=== PATIENT | female | born 1960 | race Caucasian/White ===

== ENCOUNTER 2019-10-07 12:06 | Emergency (ER) | payer OTHER ==
--- NOTE | 2019-10-07 12:15 | ED Physician Documentation ---
PD HPI LOWER EXT INJURY - Stated complaint Stated Complaint: FALL-LT LEG PX - History obtained from History obtained from: Patient - History of Present Illness PD HPI LOW EXT INJURY LOCATION: Left, Hip, Knee Type of injury: Fall (She tripped on an electric cord and fell forward onto her left knee with bruising and there that has continued as well as some pain in the hip with walking. She is concerned the bruising around the knee is now extended to the lower leg) Where injury occurred: Home Timing - onset: How many days ago (4) Timing - duration: Days (4) Timing - details: Abrupt onset, Still present, Waxing and waning (hurts for walking and extending knee) Worsened by: Palpating Associated symptoms: Swelling, Discolored (bruising medial anterior left knee, with bruising extending downward to anterior lower leg each day more.). No: Weakness, Numbness Similar symptoms before: Has not had sx before Review of Systems Skin: denies: Abrasion (s), Laceration (s) Musculoskeletal: reports: Other (muscle cramps the past few nights. No change in meds.) Neurologic: denies: Focal weakness, Numbness PD PAST MEDICAL HISTORY - Past Medical History Cardiovascular: None Respiratory: None Neuro: None Endocrine/Autoimmune: None - Present Medications Home Medications: Ambulatory Orders Medication Instructions Recorded Confirmed HYDROmorphone [Dilaudid] 2 mg PO TID PRN #12 tablet 10/07/19 Magnesium Oxide [Mag Ox] 400 mg PO DAILY #15 tablet 10/07/19 Tizanidine HCl 4 mg PO TID PRN #15 capsule 10/07/19 - Allergies Allergies/Adverse Reactions: Allergies Allergy/AdvReac Type Severity Reaction Status Date / Time amoxicillin Allergy Rash Verified 10/07/19 12:19 Sulfa (Sulfonamide Allergy Anaphylaxis Verified 10/07/19 12:18 Antibiotics) acetaminophen [From Vicodin] AdvReac Nausea Verified 10/07/19 12:19 codeine AdvReac Headache Verified 10/07/19 12:19 hydrocodone [From Vicodin] AdvReac Nausea Verified 10/07/19 12:19 lorazepam AdvReac Hallucinati Verified 10/07/19 12:19 ons Opioids - Morphine Analogues AdvReac Headache Verified 10/07/19 12:19 PD ED PE NORMAL - Vitals Vital signs reviewed: Yes - General General: Alert and oriented X 3, Well developed/nourished - Neck Neck: Supple, no meningeal sign, No adenopathy - Cardiac Cardiac: RRR, No murmur - Respiratory Respiratory: Clear bilaterally - Abdomen Abdomen: Soft, Non tender - Derm Derm: Normal color, Warm and dry - Extremities Extremities: No deformity (There is swelling from the hematoma. There is some mild laxity with pain on anterior drawer testing. Valgus testing is without any laxity.), No calf tenderness / cord, Other (Left hip is slightly tender at the lateral aspect. Impaction and rotational movement passively without any pain. Left knee shows hematoma purple bruising and swelling along the anteromedial aspect. Lower leg as purple to green bruising anteriorly. No calf tenderness) - Neuro Neuro: No motor deficit, No sensory deficit Results - Vitals Vitals: Vital Signs - 24 hr 10/07/19 12:16 Temperature 36.3 C L Heart Rate 62 Respiratory 18 Rate Blood Pressure 162/119 H O2 Saturation 100 Oxygen O2 Source Room air - Rads (name of study) left knee Radiology: Prelim report reviewed, See rad report (no fractures; moderate effusion) left hip Radiology: Prelim report reviewed (no fractures), See rad report PD MEDICAL DECISION MAKING - ED course Complexity details: reviewed results, considered differential (Hematoma with gravity extension to the anterior leg. Clinically no signs of DVT in the calf area. Can get an x-ray to evaluate for fracture. Can check electrolytes regarding muscle cramps), d/w patient Departure - Departure Clinical Impression: Muscle cramps Fall from slip, trip, or stumble Qualifiers: Encounter type: initial encounter Qualified Code(s): W01.0XXA - Fall on same level from slipping, tripping and stumbling without subsequent striking against object, initial encounter Contusion, knee Qualifiers: Encounter type: initial encounter Laterality: left Qualified Code(s): S80.02XA - Contusion of left knee, initial encounter Derangement, knee internal Qualifiers: Laterality: left Qualified Code(s): M23.92 - Unspecified internal derangement of left knee Condition: Stable Record reviewed to determine appropriate education?: Yes Instructions: ED Hematoma, ED Muscle Pain Leg Cramps Prescriptions: HYDROmorphone [Dilaudid] 2 mg PO TID PRN #12 tablet PRN Reason: Pain Magnesium Oxide [Mag Ox] 400 mg PO DAILY #15 tablet Tizanidine HCl 4 mg PO TID PRN #15 capsule PRN Reason: Spasms Comments: Continue usual medications. Use the knee brace when up and around to help support the knee. There is the bruising of the knee and the swelling and coloring in the lower leg is just a gravity effect from that. However there may be some ligament injury of the knee as well on exam with concern for the cartilage or the cruciate ligament. No fractures are seen on x-ray of your knee or hip. Use the knee brace when up and around and crutches for partial weightbearing. Pain medicine as needed. Your electrolytes are in the normal range. Continue your usual medicines. Your magnesium level is in the lower end of normal however and a magnesium supplement may help with some of the cramping you are having. Follow-up with your orthopedist or family doctor if not improved well within the next week or so for reevaluation.
[2019-10-07] MEDS ORDERED: oxyCODONE 5 MG TABLET PO STA (12:32)
[2019-10-07] MEDS: HYDROmorphone 2 MG/ML VIAL IM STA ×2 (12:44→13:05)
--- NOTE | 2019-10-07 13:21 | XRAY Report ---
PROCEDURE: Hip w/Pelvis 2-3V LT INDICATIONS: fall to left knee few days ago; knee/hip pain TECHNIQUE: AP pelvis with lateral view(s) of the left hip(s). COMPARISON: X-ray knee 10/07/2019 FINDINGS: Bones: No fractures or dislocations. Pelvic ring appears intact. No suspicious bony lesions. Mild degenerative changes are noted within the hips and lower lumbar spine. Soft tissues: The visualized bowel gas pattern is normal. No suspicious soft tissue calcifications. IMPRESSION: Degenerative changes are noted. No visualized acute fracture or dislocation. However, oc cult injury cannot be excluded. Recommend short interval imaging follow-up in 7-10 days as clinically indicated for additional evaluation. Reviewed by: Priscilal Montano MD on 10/07/2019 1:19 PM PDT Approved by: Priscilla Montano MD on 10/07/2019 1:19 PM PDT Station ID: [id number]
--- NOTE | 2019-10-07 13:21 | XRAY Report ---
PROCEDURE: Knee 3 View LT INDICATIONS: fall to left knee few days ago; knee/hip pain TECHNIQUE: 3 views of the left knee(s) were acquired. COMPARISON: X-ray hip 10/07/2019 FINDINGS: Bones: No fractures or dislocations. No suspicious bony lesions. Soft tissues: Moderate joint effusion. No suspicious soft tissue calcifications. IMPRESSION: Moderate effusion. No visualized acute fracture or dislocation. However, occult injury c annot be excluded. Recommend short interval imaging follow-up in 7-10 days as clinically indicated fo r additional evaluation. Reviewed by: Priscilla Montano MD on 10/07/2019 1:20 PM PDT Approved by: Priscilla Montano MD on 10/07/2019 1:20 PM PDT Station ID: [id number]
[2019-10-07 14:37] LABS: ALBUMIN 4.5 g/dL (3.2-5.5); ALBUMIN/GLOBULIN RATIO 1.1 (1.0-2.2); BILIRUBIN,TOTAL 0.8 mg/dL (0.2-1.0); CALCIUM 9.7 mg/dL (8.5-10.3); CREATININE 0.7 mg/dL (0.4-1.0); MAGNESIUM 1.9 mg/dL (1.7-2.8); TOTAL PROTEIN 8.7 g/dL (6.7-8.2)
[2019-10-07 14:51] VITALS: BP 145/79
== END 2019-10-07 14:52 | disposition home or self-care (01) ==
LOC: ED 12:06
DX: S80.02XA Contusion of left knee, initial encounter (principal); M25.552 Pain in left hip; W01.0XXA Fall on same level from slipping, tripping and stumbling without subsequent striking against object, initial encounter; Y92.009 Unspecified place in unspecified non-institutional (private) residence as the place of occurrence of the external cause; R25.2 Cramp and spasm
CPT/HCPCS: 36415; 73502; 73562; 80053; 83690; 83735; 96372; 99283; 99284; J1170

== ENCOUNTER 2022-09-29 10:51 | Outpatient (CLI) | payer MEDICARE ==
[2022-09-29 14:37] LABS: BASOPHILS # (AUTO) 0.1 10^3/uL (0.0-0.1); BASOPHILS % (AUTO) 1.1 %; EOSINOPHILS # (AUTO) 0.4 10^3/uL (0.0-0.7); EOSINOPHILS % (AUTO) 4.3 %; HCT - HEMATOCRIT 45.5 % (37.0-47.0); HGB - HEMOGLOBIN 14.6 g/dL (12.0-16.0); LYMPHOCYTES # (AUTO) 2.5 10^3/uL (1.5-3.5); LYMPHOCYTES % (AUTO) 30.4 %; MEAN CORPUSCULAR HEMOGLOBIN 27.5 pg (27.0-31.0); MEAN CORPUSCULAR HGB CONC 32.1 g/dL (32.0-36.0); MEAN CORPUSCULAR VOLUME 85.7 fL (81.0-99.0); MEAN PLATELET VOLUME 10.7 fL (7.9-10.8); MONOCYTES # (AUTO) 0.5 10^3/uL (0.0-1.0); MONOCYTES % (AUTO) 6.1 %; NEUTROPHILS # (AUTO) 4.7 10^3/uL (1.5-6.6); NEUTROPHILS % (AUTO) 57.9 %; PLT - PLATELET COUNT 228 10^3/uL (130-450); RED BLOOD COUNT 5.31 10^6/uL (4.20-5.40); RED CELL DISTRIBUTION WIDTH 15.1 % (12.0-15.0); WHITE BLOOD COUNT 8.1 x10^3/uL (4.8-10.8)
[2022-09-29 14:58] LABS: % IRON SATURATION 15 % (20-50); ALBUMIN 4.1 g/dL (3.2-5.5); ALBUMIN/GLOBULIN RATIO 1.1 (1.0-2.2); ALKALINE PHOSPHATASE 80 IU/L (42-121); ALT ALANINE AMINOTRANSFERASE 23 IU/L (10-60); AST ASPARTATE AMINOTRANSFERASE 36 IU/L (10-42); BILIRUBIN,TOTAL 0.8 mg/dL (0.2-1.0); BUN - BLOOD UREA NITROGEN 17 mg/dL (6-20); CALCIUM 9.8 mg/dL (8.5-10.3); CARBON DIOXIDE - CO2 31 mmol/L (21-32); CHLORIDE 101 mmol/L (101-111); CHOL/HDL RATIO 2.4 (<4.4); CHOLESTEROL 105 mg/dL; CREATININE 0.7 mg/dL (0.4-1.0); GFR - MDRD 85 (>89); GLUCOSE 103 mg/dL (70-100); HDL CHOLESTEROL 43 mg/dL; IRON 67 ug/dL (28-170); LDL CHOLESTEROL,CALCULATED 36 mg/dL; LDL/HDL RATIO 0.8 (<4.4); MICROALBUM/CREATININE RATIO,UR 9.5 ug/mg (<30.0); MICROALBUMIN,URINE 0.2 mg/dL (0-300.0); SODIUM 141 mmol/L (135-145); TOTAL IRON BINDING CAPACITY 435 ug/dL (250-450); TOTAL PROTEIN 7.9 g/dL (6.7-8.2); TRANSFERRIN 311 mg/dL (192-382); TRIGLYCERIDES 132 mg/dL; VLDL CHOLESTEROL 26 mg/dL
--- NOTE | 2022-09-29 17:29 | XRAY Report ---
PROCEDURE: Knee 3 View LT INDICATIONS: ARTHRITIS TECHNIQUE: 3 views of the left knee(s) were acquired. COMPARISON: None. FINDINGS: Bones: No fractures or dislocations. No suspicious bony lesions. Mild patellofemoral joint space na rrowing with small marginal osteophyte Soft tissues: Small knee joint effusion. No suspicious soft tissue calcifications or masses. IMPRESSION: Patellofemoral osteoarthritis and small joint effusion Reviewed by: Simón Cordova MD on 09/29/2022 4:28 PM THAIS Approved by: Simón Cordova MD on 09/29/2022 4:28 PM AKANGELO Station ID: [id number]
[2022-09-29 21:03] LABS: ESTIMATED AVERAGE GLUCOSE 126 mg/dL (70-100)
== END 2022-09-29 10:52 | disposition home or self-care (01) ==
LOC: DI.S 10:51
PROVIDERS: ATTEND Internal Medicine
DX: M17.12 Unilateral primary osteoarthritis, left knee (principal); M25.462 Effusion, left knee; R60.0 Localized edema; Z86.73 Personal history of transient ischemic attack (TIA), and cerebral infarction without residual deficits; E11.65 Type 2 diabetes mellitus with hyperglycemia; G47.39 Other sleep apnea
CPT/HCPCS: 36415; 80053; 80061; 82043; 82570; 82728; 83036; 83540; 83721; 84466; 85025

== ENCOUNTER 2022-10-15 12:07 | Outpatient (CLI) | payer MEDICARE ==
--- NOTE | 2022-10-15 13:39 | XRAY Report ---
PROCEDURE: Knee 4 View RT INDICATIONS: ARTHRITIS RT KNEE TECHNIQUE: 5 views of the right knee(s) were acquired. COMPARISON: None. FINDINGS: Bones: Status post right total knee arthroplasty. The hardware appears intact and in expected positi on. There is thinning of the anterior tibial cortex. No fractures or dislocations. No suspicious bon y lesions. Soft tissues: No knee joint effusion. No suspicious soft tissue calcifications or masses. IMPRESSION: Right total knee arthroplasty appears intact and in expected position. There is thinning and partial breakthrough of the mid to upper anterior tibial cortex, may be from prior hardware placement. Recomm end correlation with prior imaging. If clinically indicated, cross-sectional imaging can be obtained for further evaluation. Reviewed by: Miki Cordero MD on 10/15/2022 1:37 PM PDT Approved by: Miki Cordero MD on 10/15/2022 1:37 PM PDT Station ID: [id number]
== END 2022-10-15 12:08 | disposition home or self-care (01) ==
LOC: DI.S 12:07
PROVIDERS: ATTEND Internal Medicine
DX: M17.11 Unilateral primary osteoarthritis, right knee (principal); T84.032D Mechanical loosening of internal right knee prosthetic joint, subsequent encounter

== ENCOUNTER 2022-11-24 09:03 | Outpatient (CLI) | payer MEDICARE ==
--- NOTE | 2022-11-25 12:37 | Mammography Report ---
BILATERAL DIGITAL SCREENING MAMMOGRAM 3D/2D: 11/24/2022 CLINICAL: Routine screening. No prior exams were available for comparison. Both breasts are almost entirely fatty (category a/<25% glandular tissue). No significant masses, calcifications, or other findings are seen in either breast. IMPRESSION: NEGATIVE There is no mammographic evidence of malignancy. A 1 year screening mammogram is recommended. Based on the Tyrer Cuzick model (a risk assessment model) the patients lifetime risk is 3.8% and her 10 year risk is 1.7%. According to the ACR, ACS, and NCCN guidelines, an annual breast MRI exam marilyn g with mammogram is recommended if the patients lifetime risk is 20% or greater. This exam was interpreted at Station ID: [id number]. NOTE: For mammograms, a report in lay terms will be sent to the patient. Approximately 15% of breast malignancies will not be visualized mammographically. In the management of a palpable breast mass, a negative mammogram must not discourage biopsy of a clinically suspicious lesion. Electronically Signed By: Danny castro/minal:11/24/2022 15:49:33 letter sent: No_Letter ACR BI-RADS Category 1: Negative 3341F PARENCHYMAL PATTERN: (F) - The breast(s) demonstrate(s) diffuse fatty replacement. BI-RADS CATEGORY: (1) - 1 Mammogram [id number] 1 year screening LATERALITY: (B)
== END 2022-11-24 09:04 | disposition home or self-care (01) ==
LOC: DI.S 09:03
DX: Z12.31 Encounter for screening mammogram for malignant neoplasm of breast (principal)

== ENCOUNTER 2022-12-30 09:18 | Outpatient (CLI) | payer MEDICARE ==
--- NOTE | 2022-12-30 15:38 | CT Report ---
PROCEDURE: LOWER EXTREMITY WO - RT INDICATIONS: PATELLOFEMORAL JOINT PAIN, MECH LOOSENING OF RT KN TECHNIQUE: Noncontrast 3-mm axial sections acquired from the distal tibial shaft to the talar dome, with coronal and sagittal reformats. For radiation dose reduction, the following was used: automated exposure c ontrol, adjustment of mA and/or kV according to patient size. COMPARISON: Right knee radiographs 10/15/2022. FINDINGS: Image quality: Excellent. Bones: Postsurgical changes are seen from ocular right knee arthroplasty. Hardware components are in expected positions. Lucency and cortical irregularity is seen at the anterior aspect of the proximal tibial shaft adjacent to the arthroplasty. A few adjacent osseous fragments are seen in the subcutan eous tissues. Patellofemoral compartment is obscured by extensive metal streak artifact. Soft tissues: Small knee effusion. The ligaments and tendons are not well evaluated with standard CT . Mild subcutaneous edema is seen at the anterior aspect of the lower leg adjacent to the anterior ti bial cortical lucency. IMPRESSION: 1.Posterior changes again seen from modular total knee arthroplasty with hardware components in stabl e positions. Evaluation of the patellofemoral compartment is compromised by extensive metal streak ar tifact at the same level. 2.Lucency within the anterior tibial shaft adjacent to the arthroplasty stem as seen on radiographs f rom 10/15/2022, possibly related to prior postsurgical changes although a superimposed acute injury is not excluded. Mild overlying soft tissue edema and multiple small osseous fragments again seen in th e anterior subcutaneous tissues. 3.Small knee effusion. Reviewed by: Sebastián Vanessa MD on 12/30/2022 3:36 PM PDT Approved by: Sebastián Vanessa MD on 12/30/2022 3:36 PM PDT Station ID: [id number]
== END 2022-12-30 09:19 | disposition home or self-care (01) ==
LOC: DI 09:18
PROVIDERS: ATTEND Internal Medicine
DX: T84.032D Mechanical loosening of internal right knee prosthetic joint, subsequent encounter (principal); M25.561 Pain in right knee; M17.11 Unilateral primary osteoarthritis, right knee; M25.461 Effusion, right knee

== ENCOUNTER 2023-02-14 14:50 | Outpatient (CLI) | payer MEDICARE ==
--- NOTE | 2023-02-14 18:47 | XRAY Report ---
PROCEDURE: Cervical Spine Comp w/Flex/Ext INDICATIONS: CERVICAL RADIOLOPATHY TECHNIQUE: 7 views of the cervical spine were acquired. COMPARISON: None. FINDINGS: Bones: Normal bone mineralization present. Mid cervical spine disc space narrowing and anterior oste ophytes are present. Craniovertebral relationships normal. There is grade 1 anterior spinal listhesis at C3-4 which reduces on extension. Grade 1 retrolisthesis at the C4-5 and C5-6 is present without c hange on flexion and extension. Oblique images demonstrate osseous patency of the neural foramina without stenosis. Soft tissues: Prevertebral soft tissues are normal in thickness. IMPRESSION: There is 3 to 4 mm translation between flexion and extension at C3-4, suggesting an element of instab ility. Degenerative disc disease and arthropathy Reviewed by: Simón Cordova MD on 02/14/2023 5:45 PM AKST Approved by: Simón Cordova MD on 02/14/2023 5:45 PM AK Station ID: [id number]
== END 2023-02-14 14:51 | disposition home or self-care (01) ==
LOC: DI.S 14:50
PROVIDERS: ATTEND Internal Medicine
DX: M43.12 Spondylolisthesis, cervical region (principal); M50.10 Cervical disc disorder with radiculopathy, unspecified cervical region; M47.22 Other spondylosis with radiculopathy, cervical region

== ENCOUNTER 2023-03-08 10:19 | Outpatient (CLI) | payer MEDICARE ==
--- NOTE | 2023-03-08 13:01 | MRI Report ---
PROCEDURE: CERVICAL SPINE WO INDICATIONS: CERVICAL RADICULOPATHY TECHNIQUE: Noncontrast sagittal T1 spin echo and T2 fast spin echo, sagittal STIR, foraminal oblique sagittal T2 fast spin echo, and axial gradient echo or T2 fast spin echo through the cervical spine. COMPARISON: None. FINDINGS: Image quality: Motion degraded. Alignment and Curvature: Straightening of normal lordosis with mild reversal centered at C4.. Bone Marrow: Marrow demonstrates normal overall signal. Spinal Cord: Visualized spinal cord has normal size and signal. No cerebellar tonsillar herniation. Paraspinous Soft Tissues: No paravertebral masses. Prevertebral soft tissues are normal in thicknes s. C2-C3: Disc desiccation. No central canal stenosis. Facet and uncovertebral arthropathy. Moderate le ft and no right neuroforaminal stenosis. C3-C4: Disc desiccation and mild posterior disc osteophyte complex. No central canal stenosis. Face t and uncovertebral arthropathy. Mild left and moderate right neuroforaminal stenosis. C4-C5: Disc desiccation and mild posterior disc osteophyte complex. Mild central canal stenosis. Fac et and uncovertebral arthropathy. Moderate left and severe right neuroforaminal stenosis. C5-C6: Disc desiccation and mild posterior disc osteophyte complex. Mild central canal stenosis. Fac et and uncovertebral arthropathy. Severe bilateral neuroforaminal stenosis. C6-C7: Disc desiccation. No central canal stenosis. Facet and uncovertebral arthropathy. Severe left and moderate right neuroforaminal stenosis. C7-T1: Disc desiccation and mild posterior disc osteophyte complex. No central canal stenosis. Facet and uncovertebral arthropathy. Severe right and moderate left neuroforaminal stenosis. IMPRESSION: 1.Multilevel degenerative changes of the cervical spine as described above. 2.Mild central canal stenosis at C4-C5 and C5-C6. 3.Severe neuroforaminal stenosis on the right at C4-C5, bilaterally at C5-C6, left at C6-C7 and right at C7-T1. Reviewed by: Miki Cordero MD on 03/08/2023 1:00 PM PST Approved by: Miki Cordero MD on 03/08/2023 1:00 PM PST Station ID: [id number]
== END 2023-03-08 10:20 | disposition home or self-care (01) ==
LOC: DI 10:19
PROVIDERS: ATTEND Internal Medicine
DX: M47.22 Other spondylosis with radiculopathy, cervical region (principal); M48.02 Spinal stenosis, cervical region

== ENCOUNTER 2023-04-06 08:00 | Outpatient (CLI) | payer MEDICARE | END 2023-04-06 08:01 | disposition home or self-care (01) | LOC: LAB.S 08:00 | PROVIDERS: ATTEND Physician Assistant Medical | DX: R09.89 Other specified symptoms and signs involving the circulatory and respiratory systems (principal) ==

== ENCOUNTER 2023-07-22 12:31 | Outpatient (CLI) | payer MEDICARE ==
[2023-07-22 12:57] LABS: BASOPHILS # (AUTO) 0.1 10^3/uL (0.0-0.1); BASOPHILS % (AUTO) 0.9 %; EOSINOPHILS # (AUTO) 0.2 10^3/uL (0.0-0.7); EOSINOPHILS % (AUTO) 1.8 %; HCT - HEMATOCRIT 44.8 % (37.0-47.0); HGB - HEMOGLOBIN 14.5 g/dL (12.0-16.0); LYMPHOCYTES # (AUTO) 2.3 10^3/uL (1.5-3.5); LYMPHOCYTES % (AUTO) 25.6 %; MEAN CORPUSCULAR HEMOGLOBIN 27.2 pg (27.0-31.0); MEAN CORPUSCULAR HGB CONC 32.4 g/dL (32.0-36.0); MEAN CORPUSCULAR VOLUME 83.9 fL (81.0-99.0); MEAN PLATELET VOLUME 9.1 fL (7.9-10.8); MONOCYTES # (AUTO) 0.6 10^3/uL (0.0-1.0); MONOCYTES % (AUTO) 6.4 %; NEUTROPHILS # (AUTO) 5.8 10^3/uL (1.5-6.6); NEUTROPHILS % (AUTO) 65.2 %; PLT - PLATELET COUNT 209 10^3/uL (130-450); RED BLOOD COUNT 5.34 10^6/uL (4.20-5.40); RED CELL DISTRIBUTION WIDTH 14.6 % (12.0-15.0); WHITE BLOOD COUNT 8.9 x10^3/uL (4.8-10.8)
[2023-07-22 13:13] LABS: ALBUMIN 3.9 g/dL (3.2-5.5); ALBUMIN/GLOBULIN RATIO 1.2 (1.0-2.2); BILIRUBIN,TOTAL 0.5 mg/dL (0.2-1.0); CALCIUM 9.5 mg/dL (8.5-10.3); CREATININE 0.5 mg/dL (0.6-1.3); CRP - C-REACTIVE PROTEIN 1.4 mg/dL (<0.5); POTASSIUM 3.6 mmol/L (3.5-4.5); TOTAL PROTEIN 7.2 g/dL (6.4-8.9)
[2023-07-22 13:27] LABS: THYROID STIMULATING HORMONE 2.8 uIU/mL (0.34-5.60)
[2023-07-22 13:36] LABS: ESTIMATED AVERAGE GLUCOSE 166 mg/dL (70-100); HEMOGLOBIN A1c% 7.4 % (4.27-6.07)
[2023-07-22 13:41] LABS: CREATININE,URINE 58.8 mg/dL; MICROALBUM/CREATININE RATIO,UR 18.7 ug/mg (<30.0); MICROALBUMIN,URINE 1.1 mg/dL
== END 2023-07-22 12:32 | disposition home or self-care (01) ==
LOC: LAB 12:31
PROVIDERS: ATTEND Internal Medicine
DX: E11.65 Type 2 diabetes mellitus with hyperglycemia (principal); R11.10 Vomiting, unspecified
CPT/HCPCS: 36415; 80053; 82043; 82150; 82570; 83036; 83690; 84443; 85025; 85651; 86140

== ENCOUNTER 2023-08-01 13:52 | Outpatient (CLI) | payer MEDICARE ==
--- NOTE | 2023-08-01 16:02 | CT Report ---
PROCEDURE: Lower Extremity RT WO INDICATIONS: LOOSENING OF R KNEE PROSTHETIC HARDWARE TECHNIQUE: Noncontrast 2-mm axial sections acquired from the femur to the mid tibial shaft, with coronal and sag ittal reformats. For radiation dose reduction, the following was used: automated exposure control, adjustment of mA and/or kV according to patient size. COMPARISON: Right knee radiographs 10/15/2022 FINDINGS: Image quality: Excellent. Bones: Postsurgical changes are seen from modular right knee arthroplasty. Lucency is seen at the kennedi ne-cement interface in the tibia. Lucent osseous tract is seen from the anterior tibial cortex to the prosthesis with a few small osseous fragments in the anterior subcutaneous tissues. Patellar is mild ly low-lying. Soft tissues: Small joint effusion. Mild grade 2 fatty infiltration of the musculature surrounding t he knee. Anterior subcutaneous scarring is present. IMPRESSION: 1.No postsurgical changes from revision knee arthroplasty with a modular prosthesis. Lucency at the p osterior bone-cement interface in the proximal tibia that could indicate loosening. 2.Lucent tract at the anterior cortex of the tibial shaft with small adjacent osseous fragments, like ly related to prior postsurgical changes although superimposed trauma is not excluded. Reviewed by: Sebastián Vanessa MD on 08/01/2023 4:01 PM PDT Approved by: Sebastián Vanessa MD on 08/01/2023 4:01 PM PDT Station ID: [id number]
== END 2023-08-01 13:53 | disposition home or self-care (01) ==
LOC: DI 13:52
PROVIDERS: ATTEND Internal Medicine
DX: T84.032D Mechanical loosening of internal right knee prosthetic joint, subsequent encounter (principal)

== ENCOUNTER 2023-09-01 08:00 | Outpatient (CLI) | payer MEDICARE | END 2023-09-01 23:59 | disposition home or self-care (01) | LOC: LAB.S 08:00 | PROVIDERS: ATTEND Registered Nurse | DX: U07.1 COVID-19 (principal) ==